=== PATIENT | female | born 1990 | race African-American/Black ===

== ENCOUNTER 2016-05-09 07:32 | Day surgery (SDC) | payer OTHER ==
[2016-05-07 11:54] LABS: HEMATOCRIT 37.7 % (36.0-47.0); HEMOGLOBIN 12.7 g/dL (12.0-15.5); HGB HCT DIFFERENCE 0.4; MEAN CORPUSCULAR HEMOGLOBIN 30.1 pg (27.0-33.4); MEAN CORPUSCULAR HGB CONC 33.6 g/dL (32.0-36.0); MEAN CORPUSCULAR VOLUME 90 fl (80-97); RED BLOOD COUNT 4.21 10^6/uL (3.72-5.28); RED CELL DISTRIBUTION WIDTH 14.7 % (11.5-14.0); WHITE BLOOD COUNT 6.5 10^3/uL (4.0-10.5)
[2016-05-07 12:02] LABS: APPEARANCE,URINE CLEAR; BILIRUBIN,URINE NEGATIVE (NEGATIVE); GLUCOSE, URINE NEGATIVE (NEGATIVE); KETONES,URINE NEGATIVE (NEGATIVE); LEUKOCYTE ESTERASE,URINE NEGATIVE (NEGATIVE); NITRITE,URINE NEGATIVE (NEGATIVE); PROTEIN,URINE NEGATIVE (NEGATIVE); URINE SPECIFIC GRAVITY 1.014; UROBILINOGEN,URINE NEGATIVE mg/dL (<2.0)
[~2016-05-09 07:32] MED LIST: CEFAZOLIN 2 GM/D5W RTU 2 GM/50 ML RTUPB IV PRN; LACTATED RINGERS 1000 ML IV PRN; LIDOCAINE 0.5% INJ-PF (5 MG/ML) 50 ML SDV SUBCUT PRN
[2016-05-09] MEDS ORDERED: FENTANYL CITRATE INJ/PF 100 MCG/2 ML AMPUL ONE (09:39)
[2016-05-09] MEDS ORDERED: DEXAMETHASONE SOD PHOSPHATE INJ 4 MG/1 ML VIAL ONE (09:39)
[2016-05-09] MEDS ORDERED: MIDAZOLAM 2 MG/2 ML INJ ONE (09:39)
[2016-05-09] MEDS ORDERED: PROPOFOL INJ 200 MG/20 ML VIAL IV ONE (09:39)
[2016-05-09] MEDS ORDERED: KETOROLAC TROMETHAMINE 60 MG/2 ML SDV ONE (09:39)
[2016-05-09] MEDS ORDERED: ONDANSETRON HCL INJ/PF 4 MG/2 ML SDV ONE (09:39)
[2016-05-09] MEDS ORDERED: DIPHENHYDRAMINE HCL 50 MG/ML VIAL IV PRN (10:07)
[2016-05-09] MEDS ORDERED: MORPHINE SULFATE 10 MG/ML INJ IV PRN (10:07)
[2016-05-09] MEDS ORDERED: PROMETHAZINE HCL INJ 25 MG/1 ML VIAL IV PRN ×2 (10:07)
[2016-05-09] MEDS ORDERED: MEPERIDINE HCL/PF INJ 25 MG/1 ML DISP.SYRIN IV PRN (10:07)
[2016-05-09] MEDS ORDERED: FENTANYL CITRATE INJ/PF 100 MCG/2 ML AMPUL IV PRN ×3 (10:07)
[2016-05-09] MEDS ORDERED: ACETAMINOPHEN 100 ML IV ONE (10:54)
[2016-05-09] MEDS ORDERED: OXYCODONE HCL IR 5 MG TABLET PO PRN ×2 (11:10)
--- NOTE | 2016-05-09 11:18 | OPERATIVE REPORT E ---
Operative Report NAME: AMILCAR ARAUJO : 1990 AGE: 25Y DATE OF SURGERY: 05/09/2016 ROOM: PREOPERATIVE DIAGNOSIS: Abnormal bleeding with suspected endometrial polyps. POSTOPERATIVE DIAGNOSES: 1. Abnormal bleeding. 2. Endometrial polyps. OPERATION PERFORMED: Hysteroscopy D and C with MyoSure. SURGEON: SHIRLEY OSBORNE M.D. ANESTHESIA: General. ESTIMATED BLOOD LOSS: 5 mL. SPECIMEN TO PATHOLOGY: Endometrial curettings and polyp. FINDINGS: After introduction of a hysteroscope there were 2 slightly irregular polyps noted at the fundus of the uterus. The remainder of the cavity showed slightly thickened endometrium but no obvious abnormalities. DESCRIPTION OF PROCEDURE: After discussing risks, benefits, and alternatives of the procedure and obtaining informed consent, the patient was taken to the operating room where general anesthesia was achieved. She was positioned in the dorsal lithotomy position and prepped and draped in the usual standard fashion. The bladder was drained via in-and-out catheterization. A speculum was placed in the vagina and the anterior aspect of the uterus was grasped. The cervix was serially dilated to allow for passage of the hysteroscope. Hysteroscopy was performed. The polyps were noted. The hysteroscope was removed. Curettage of the cavity was completed and relatively clean. The hysteroscope was replaced; however, the endometrial fragments of polyps were still present at the fundus. The MyoSure device was then called for and was placed, and under direct visualization the remainder of the polyps were removed. Hemostasis was assured. The hysteroscope was removed. The tenaculum was removed and hemostasis again assured. Instruments were removed from the vagina. Patient was taken out of dorsal lithotomy and awakened from anesthesia. She was taken to recovery in stable condition. All sponge, needle, lap and instrument counts were correct x2. DICTATING PHYSICIAN: SHIRLEY OSBORNE M.D. [id number] PHY#: [id number] ID: [id number] JOB#: [id number] ACCT: [id number] cc:SHIRLEY OSBORNE M.D. >
[2016-05-09 14:23] VITALS: BP 124/75
== END 2016-05-09 12:20 | disposition home or self-care (01) ==
LOC: OROUT 07:32
PROVIDERS: ATTEND Specialist
PROC: 0UDB8ZX Extraction of Endometrium, Via Natural or Artificial Opening Endoscopic, Diagnostic (ICD-10-PCS; 2016-05-09)
PROC: 0UB98ZX Excision of Uterus, Via Natural or Artificial Opening Endoscopic, Diagnostic (ICD-10-PCS; principal; 2016-05-09 09:45)
DX: N92.0 Excessive and frequent menstruation with regular cycle (principal); E28.2 Polycystic ovarian syndrome; E66.9 Obesity, unspecified; N84.0 Polyp of corpus uteri; Z68.41 Body mass index [BMI] 40.0-44.9, adult; Z79.84 Long term (current) use of oral hypoglycemic drugs
CPT/HCPCS: 36415; 85027; 81025; 81001; 88305 ×2; 58558; J2250; J1100; J1885; J3010; J2405; J2704; J0690; J0131; 952

== ENCOUNTER 2017-04-24 17:48 | Emergency (ER) | payer OTHER ==
--- NOTE | 2017-04-24 18:21 | ER Document Report ---
ED Medical Screen (RME) - General Chief Complaint: Shortness Of Breath Stated Complaint: SHORTNESS OF BREATH,CHEST PAIN Time Seen by Provider: 04/24/17 18:19 Mode of Arrival: Ambulatory Information source: Patient Notes: This is a 26-year-old female who is 5 days presenting to the emergency room with shortness of breath for 2 days. Patient had delivered at [facility] at 37 weeks. Her was notable for preeclampsia. She never required any antihypertensives by her history. She had an uncomplicated vaginal delivery and states she felt good when leaving. She does report that since yesterday, she is had some shortness of breath. She does report some lower extremity swelling that has been worse on the right side than the left. She denies any calf tenderness. Patient is accompanied by her friend who states that the patient did sound winded when talking on the phone. TRAVEL OUTSIDE OF THE [place] IN LAST 30 DAYS: No - Related Data Allergies/Adverse Reactions: No Known Allergies Allergy (Unverified 02/17/12 21:28) Past Medical History - Social History Frequency of alcohol use: Occasional Drug Abuse: None - Past Medical History Cardiac Medical History: Denies: Hx Coronary Artery Disease, Hx Heart Attack, Hx Hypertension Pulmonary Medical History: Denies: Hx Asthma, Hx Bronchitis, Hx COPD, Hx Pneumonia Neurological Medical History: Reports: Hx Migraine. Denies: Hx Cerebrovascular Accident, Hx Seizures Renal/ Medical History: Reports: Hx Ovarian Cysts - pcos. Denies: Hx Peritoneal Dialysis Musculoskeltal Medical History: Denies Hx Arthritis - Immunizations Immunizations up to date: Yes Hx Diphtheria, Pertussis, Tetanus Vaccination: Yes Physical Exam - Vital signs Vitals: Temp Pulse Resp BP Pulse Ox 98.6 F 71 20 157/84 H 98 04/24/17 17:53 04/24/17 17:53 04/24/17 17:53 04/24/17 17:53 04/24/17 17:53 Course - Vital Signs Vital signs: Temp Pulse Resp BP Pulse Ox 98.6 F 71 20 157/84 H 98 04/24/17 17:53 04/24/17 17:53 04/24/17 17:53 04/24/17 17:53 04/24/17 17:53
[2017-04-24 18:48] LABS: ABSOLUTE EOSINOPHILS # (AUTO) 0.1 10^3/uL (0.0-0.6); ABSOLUTE MONOCYTES (AUTO) 0.8 10^3/uL (0.1-1.4); ABSOLUTE NEUT (AUTO) 7.1 10^3/uL (1.7-8.2); BASOPHILS % (AUTO) 0.3 % (0-2); EOSINOPHILS % (AUTO) 0.9 % (0-6); HEMATOCRIT 29.5 % (36.0-47.0); HEMOGLOBIN 9.9 g/dL (12.0-15.5); LYMPHOCYTES % (AUTO) 20.2 % (13-45); MEAN CORPUSCULAR HEMOGLOBIN 30.1 pg (27.0-33.4); MEAN CORPUSCULAR HGB CONC 33.4 g/dL (32.0-36.0); MEAN CORPUSCULAR VOLUME 90 fl (80-97); MONOCYTES % (AUTO) 8.2 % (3-13); PLATELET COUNT 322 10^3/uL (150-450); RED BLOOD COUNT 3.28 10^6/uL (3.72-5.28); RED CELL DISTRIBUTION WIDTH 15.1 % (11.5-14.0); SEGMENTED NEUTROPHILS % (AUTO) 70.4 % (42-78); TOTAL CELLS COUNTED % (AUTO) 100 %; WHITE BLOOD COUNT 10.1 10^3/uL (4.0-10.5)
[2017-04-24 19:02] LABS: ALANINE AMINOTRANSFERASE 48 U/L (9-52); ALBUMIN 3.4 g/dL (3.5-5.0); ALKALINE PHOSPHATASE 104 U/L (38-126); ANION GAP 9 (5-19); ASPARTATE AMINO TRANSFERASE 46 U/L (14-36); BILIRUBIN,DIRECT 0.1 mg/dL (0.0-0.4); BILIRUBIN,TOTAL 0.4 mg/dL (0.2-1.3); BLOOD UREA NITROGEN 4 mg/dL (7-20); CALCIUM 9.3 mg/dL (8.4-10.2); CARBON DIOXIDE 25 mmol/L (22-30); CHLORIDE 107 mmol/L (98-107); GLUCOSE 69 mg/dL (75-110); POTASSIUM 3.3 mmol/L (3.6-5.0); SODIUM 141.1 mmol/L (137-145)
[2017-04-24 19:29] LABS: APPEARANCE,URINE CLEAR; BILIRUBIN,URINE NEGATIVE (NEGATIVE); COLOR,URINE YELLOW; GLUCOSE, URINE NEGATIVE (NEGATIVE); KETONES,URINE 20 mg/dL (NEGATIVE); LEUKOCYTE ESTERASE,URINE SMALL (NEGATIVE); NITRITE,URINE NEGATIVE (NEGATIVE); PROTEIN,URINE NEGATIVE (NEGATIVE); URINE SPECIFIC GRAVITY 1.005; UROBILINOGEN,URINE NEGATIVE mg/dL (<2.0)
--- NOTE | 2017-04-24 19:43 | RADIOLOGY REPORT (SQ) ---
EXAM DESCRIPTION: CHEST SINGLE VIEW COMPLETED DATE/TIME: 04/24/2017 7:34 pm REASON FOR STUDY: sob COMPARISON: 02/17/2012 EXAM PARAMETERS: NUMBER OF VIEWS: One view. TECHNIQUE: Single frontal portable radiographic view of the chest acquired. RADIATION DOSE: NA LIMITATIONS: None. FINDINGS: LUNGS AND PLEURA: No acute opacities, masses or pneumothorax. No pleural effusion. MEDIASTINUM AND HILAR STRUCTURES: No masses. Contour normal. HEART AND VASCULAR STRUCTURES: Heart normal in size. Normal vasculature. BONES: No acute findings. HARDWARE: None in the chest. OTHER: No other significant finding. IMPRESSION: NO ACUTE RADIOGRAPHIC FINDING IN THE CHEST. TECHNICAL DOCUMENTATION: JOB ID: [id number] [place]-72 2010 [employer]- All Rights Reserved
[2017-04-24] MEDS ORDERED: LABETALOL HCL 200 MG TABLET PO ONE (20:12)
--- NOTE | 2017-04-24 20:20 | ER Document Report ---
ED General - General Chief Complaint: Shortness Of Breath Stated Complaint: SHORTNESS OF BREATH,CHEST PAIN Time Seen by Provider: 04/24/17 18:19 Mode of Arrival: Ambulatory Notes: Patient is a 26-year-old female 5 days from a vaginal delivery induced at 37 weeks for preeclampsia who presents with headache, chest discomfort, and body aches. Patient reports that she did not receive magnesium her antihypertensive during her delivery and had normalization of her blood pressure . She was discharged home without the need for antihypertensives. She reports over the past 2-3 days she has had progressive worsening of a headache. She also notes intermittent shortness of breath and chest pain which she does describe it as a intermittent heaviness, achiness diffusely over her chest wall. Nothing improves or worsens that symptom. She denies any history of DVT or pulmonary embolus. She denies any pleuritic pain, hemoptysis, or exertional worsening of her symptoms. She does note bilateral lower extremity edema and contrary to triage assessment she denies any unilateral worsening of one versus the other. She has not yet followed up with her INTERPRETATIVE DANCER regarding today's concerns. TRAVEL OUTSIDE OF THE [place] IN LAST 30 DAYS: No - Related Data Allergies/Adverse Reactions: No Known Allergies Allergy (Unverified 02/17/12 21:28) Past Medical History - General Information source: Patient - Social History Smoking Status: Never Smoker Frequency of alcohol use: Occasional Drug Abuse: None Lives with: Spouse/Significant other Family History: Reviewed & Not Pertinent Patient has suicidal ideation: No Patient has homicidal ideation: No - Past Medical History Cardiac Medical History: Denies: Hx Coronary Artery Disease, Hx Heart Attack, Hx Hypertension Pulmonary Medical History: Denies: Hx Asthma, Hx Bronchitis, Hx COPD, Hx Pneumonia Neurological Medical History: Reports: Hx Migraine. Denies: Hx Cerebrovascular Accident, Hx Seizures Renal/ Medical History: Reports: Hx Ovarian Cysts - pcos. Denies: Hx Peritoneal Dialysis Musculoskeltal Medical History: Denies Hx Arthritis - Immunizations Immunizations up to date: Yes Hx Diphtheria, Pertussis, Tetanus Vaccination: Yes Review of Systems - Review of Systems Notes: Constitutional: Negative for fever. HENT: Negative for sore throat. Eyes: Negative for visual changes. Cardiovascular: Positive for chest pain. Respiratory: Positive for shortness of breath. Gastrointestinal: Negative for abdominal pain, vomiting or diarrhea. Genitourinary: Negative for dysuria. Musculoskeletal: Negative for back pain. Skin: Negative for rash. Neurological: Positive for headache 10 point ROS negative except as marked above and in HPI. Physical Exam - Vital signs Vitals: Temp Pulse Resp BP Pulse Ox 98.6 F 71 20 157/84 H 98 04/24/17 17:53 04/24/17 17:53 04/24/17 17:53 04/24/17 17:53 04/24/17 17:53 Interpretation: Hypertensive Notes: PHYSICAL EXAMINATION: GENERAL: Well-appearing, well-nourished and in no acute distress. HEAD: Atraumatic, normocephalic. EYES: Pupils equal round and reactive to light, extraocular movements intact, sclera anicteric, conjunctiva are normal. ENT: nares patent, oropharynx clear without exudates. Moist mucous membranes. NECK: Normal range of motion, supple without lymphadenopathy LUNGS: Breath sounds clear to auscultation bilaterally and equal. No wheezes rales or rhonchi. HEART: Regular rate and rhythm without murmurs ABDOMEN: Soft, nontender, normoactive bowel sounds. No guarding, no rebound. No masses appreciated. EXTREMITIES: Normal range of motion, 3+ pitting edema that is equal and symmetric in the bilateral lower extremities, no cyanosis. NEUROLOGICAL: No focal neurological deficits. Moves all extremities spontaneously and on command. PSYCH: Normal mood, normal affect. SKIN: Warm, Dry, normal turgor, no rashes or lesions noted. Course - Re-evaluation Re-evalutation: 04/24/17 20:17 Patient presents with headache, chest discomfort, intermittent shortness of breath, and hypertension but is otherwise very well in appearance. I do not clinically suspect an acute pulmonary embolus as patient is not tachypneic, tachycardic or hypoxemic and her lower cavity edema is equal and symmetric. She is PERC criteria negative. I have a very low pretest probability for this despite her being in high risk category as she is only 5 days from vaginal delivery. However, she denies typical symptoms for this diagnosis including no report of pleuritic pain, no shortness of breath at time of my assessment, no hemoptysis, and again her vital signs are very contradictory to what one would expect in the setting of a pulmonary embolus. She is in agreement with avoiding the CTA at this point given the risks of associated radiation and the overall low pretest probability for this diagnosis. Chest x- ray is clear without any evidence of a spontaneous pneumothorax, pleural effusion, or acute infiltrate. EKG unremarkable without any ischemic changes and her clinical history is likewise not consistent with ACS. My primary concern is the patient appears to be having ongoing preeclampsia. I did discuss with the INTERPRETATIVE DANCER on-call Dr. Jack Ghotra. I requested hospitalization given that patient is having a headache with associated hypertension up to [address] Ghotra however has informed me that he does not routinely hospitalize these patients, does not believe the patient requires IV antihypertensives or magnesium, and has requested the patient be discharged home with outpatient follow-up. He has asked that the patient, who is breast- feeding, be started on labetalol 200 mg orally twice daily. Patient has been given this medication here in the emergency department. I have asked her to follow-up with her INTERPRETATIVE DANCER first thing in the morning and return to the emergency department immediately for any new or worsening symptoms. She is in agreement with this plan and is verbalized indications to return to the emergency department. - Vital Signs Vital signs: Temp Pulse Resp BP Pulse Ox 98.6 F 71 12 153/79 H 99 04/24/17 21:34 04/24/17 17:53 04/24/17 20:11 04/24/17 20:47 04/24/17 20:11 - Laboratory Result Diagrams: 04/24/17 18:27 04/24/17 18:27 Laboratory results interpreted by me: 04/24/17 04/24/17 04/24/17 18:27 18:27 18:54 RBC 3.28 L Hgb 9.9 L Hct 29.5 L RDW 15.1 H Potassium 3.3 L BUN 4 L Glucose 69 L AST 46 H Total Protein 6.0 L Albumin 3.4 L Urine Ketones 20 H Urine Blood LARGE H Ur Leukocyte Esterase SMALL H - Diagnostic Test Radiology reviewed: Image reviewed, Reports reviewed Radiology results interpreted by me: 04/24/17 20:20 Chest x-ray: No acute infiltrate or pneumothorax - EKG Interpretation by Me Additional EKG results interpreted by me: 04/24/17 20:20 Normal sinus rhythm. Rate 70. No ST elevations or depressions. QTC is 389. Discharge - Discharge Clinical Impression: Preeclampsia in period, Chest discomfort Condition: Good Disposition: HOME, SELF-CARE Additional Instructions: I spoke with the INTERPRETATIVE DANCER on-call today, Dr. Jack Ghotra and he has recommended that you be discharged home rather than be admitted to the hospital. He has recommended that she be started on labetalol 200 mg twice daily. Please follow- up with your INTERPRETATIVE DANCER tomorrow for reassessment as well as a recheck of your vitals. Return to the emergency department immediately if you have worsening of your symptoms, pass out, have persistent vomiting, worsening of your headache , seizures, or any other symptoms that are worrisome to you. Prescriptions: Labetalol HCl 200 mg PO BID #60 tablet
[2017-04-24 21:34] VITALS: BP 166/88
--- NOTE | 2017-04-25 11:09 | EKG REPORT ---
SEVERITY:- OTHERWISE NORMAL ECG - SINUS RHYTHM BORDERLINE LEFT AXIS DEVIATION : Confirmed by: Razia Hung 25-Apr-2017 11:08:26
== END 2017-04-24 21:34 | disposition home or self-care (01) ==
LOC: ER 17:48
DX: O14.95 Unspecified pre-eclampsia, complicating the puerperium (principal); O90.89 Other complications of the puerperium, not elsewhere classified; R07.89 Other chest pain; R51 Headache; R06.02 Shortness of breath
CPT/HCPCS: 36415; 71045; 80053; 81001; 85025; 93005; 93010; 99285

== ENCOUNTER 2018-03-22 06:32 | Emergency (ER) | payer OTHER ==
--- NOTE | 2018-03-22 07:17 | RADIOLOGY REPORT (SQ) ---
EXAM DESCRIPTION: CT HEAD WITHOUT IV CONTRAST COMPLETED DATE/TME: 03/22/2018 00:00 CLINICAL HISTORY: right weak, slurred speech COMPARISON: None available TECHNIQUE: Axial CT of the head obtained from the skull apex to the skull base without contrast. FINDINGS: No acute intracranial hemorrhage identified. No mass, mass effect, shift of the midline, abnormal extra-axial fluid collection or CT evidence of acute ischemic change identified. The ventricular system is unremarkable. No acute abnormalities of the supratentorial white matter, basal ganglia, cerebellum, or brainstem. Mucosal thickening of the paranasal sinuses. Mastoid air cells are well aerated. No skull fracture identified. Visualized orbits and globes are unremarkable. DLP: 928.66 mGy-cm IMPRESSION: 1. No acute intracranial abnormality identified. This exam was performed according to our departmental dose-optimization program, which includes automated exposure control, adjustment of the mA and/or kV according to patient size and/or use of iterative reconstruction technique.
--- NOTE | 2018-03-22 07:44 | ER Document Report ---
ED General - General TRAVEL OUTSIDE OF THE [place] IN LAST 30 DAYS: No <GERDA ALMANZA - Last Filed: 03/22/18 14:24> <TOI SHIN - Last Filed: 03/23/18 08:17> - General Chief Complaint: S/S of Possible Stroke Stated Complaint: RIGHT SIDE WEAKNESS Time Seen by Provider: 03/22/18 07:06 - HPI Notes: Patient is a 27-year-old female with no significant past medical history aside from preeclampsia who presents to the emergency department complaining of dysarthria, right face/arm tingling that began at 6 AM. Patient states that she was fine when she went to bed last night. She does not recall insect bite, foods, or exposure to chemicals. Patient states that she is able to swallow, but does feel difficulty on the right side at times. states that she is otherwise acting and behaving normally. Patient states that she is urinating normally. She has not had any vaginal discharge, odor, or bleeding. Patient has been able to ambulate without any difficulty. The tingling has improved since onset. Denies any headache, fever, head injury, neck pain, changes in vision/mentation/hearing, URI, sore throat, chest pain, palpitations, syncope, cough, shortness of breath, wheeze, dyspnea, abdominal pain, nausea/vomiting/diarrhea, urinary retention, dysuria, hematuria, loss of control of bowel or bladder, saddle anesthesia, muscle paralysis/weakness, or rash. (GERDA ALMANZA) - Related Data Allergies/Adverse Reactions: No Known Allergies Allergy (Verified 03/22/18 09:28) Past Medical History - Social History Smoking Status: Never Smoker Chew tobacco use (# tins/day): No Frequency of alcohol use: Occasional Drug Abuse: None Family History: Reviewed & Not Pertinent Patient has suicidal ideation: No Patient has homicidal ideation: No - Past Medical History Cardiac Medical History: Denies: Hx Coronary Artery Disease, Hx Heart Attack, Hx Hypertension Pulmonary Medical History: Denies: Hx Asthma, Hx Bronchitis, Hx COPD, Hx Pneumonia Neurological Medical History: Reports: Hx Migraine. Denies: Hx Cerebrovascular Accident, Hx Seizures Renal/ Medical History: Reports: Hx Ovarian Cysts - pcos. Denies: Hx Peritoneal Dialysis Musculoskeletal Medical History: Denies Hx Arthritis - Immunizations Immunizations up to date: Yes Hx Diphtheria, Pertussis, Tetanus Vaccination: Yes <GERDA ALMANZA - Last Filed: 03/22/18 14:24> Review of Systems - Review of Systems -: Yes All other systems reviewed and negative <GERDA ALMANZA - Last Filed: 03/22/18 14:24> Physical Exam <GERDA ALMANZA - Last Filed: 03/22/18 14:24> - Vital signs Vitals: Resp Pulse Ox 16 99 03/22/18 06:52 03/22/18 06:52 - Notes Notes: PHYSICAL EXAMINATION: GENERAL: Well-appearing, well-nourished and in no acute distress. A&Ox4. Answe rs questions appropriately. HEAD: Atraumatic, normocephalic. Non-tender. EYES: Pupils equal round and reactive to light, extraocular movements intact, sclera anicteric, conjunctiva are normal. No nystagmus. vis velez intact. ENT: EAC clear b/l. TM's intact b/l without erythema, fluid, or perforation. Nares patent and with clear discharge. oropharynx clear without exudates. No tonsilar hypertrophy or erythema. Moist mucous membranes. No sinus tenderness. NECK: Normal range of motion, supple without lymphadenopathy. No rigidity/meningismus. No midline tenderness. LUNGS: Breath sounds clear to auscultation bilaterally and equal. No wheezes rales or rhonchi. HEART: Regular rate and rhythm without murmurs, rubs, gallops. ABDOMEN: Soft, nontender, nondistended abdomen. No guarding, no rebound. Normal bowel sounds present. No CVA tenderness bilaterally. Musculoskeletal: Ext's b/l: FROM to passive/active. Strength 5+/5. No deficits noted. No bony tenderness of extremities. Extremities: No cyanosis, clubbing, or edema b/l. Peripheral pulses 2+. Capillary refill less than 2 seconds. NEUROLOGICAL: NIH 2 (1 for facial palsy rt side-mild, and 1 for speech). The right cheek does not elevate symmetrically. Her speech is understood, but somewhat muffled. GCS 15. Cranial nerves otherwise grossly intact. Gait normal. Normal sensory, motor exams--no sharp/dull deficits. Reflexes 1+ b/l and equal. ROSA's negative. Pronator drift negative. Heel/khan, finger/nose wnl. Rhomberg neg. PSYCH: Normal mood, normal affect. SKIN: Warm, Dry, normal turgor, no rashes or lesions noted. (GERDA ALMANZA) Course - Laboratory Result Diagrams: 03/22/18 08:20 03/22/18 08:00 <GERDA ALMANZA - Last Filed: 03/22/18 14:24> - Laboratory Result Diagrams: 03/22/18 08:20 03/22/18 08:00 <TOI SHIN - Last Filed: 03/23/18 08:17> - Re-evaluation Re-evalutation: 03/22/18 09:30 Pt was found to have a neg CT and MRI was then ordered after review with Dr. Shin. NIH 2. MRI + for left MCA infarct. Last known normal was approx 930pm last night. Pt states that she woke up feeling "funny." Pt has not had any deterioration in signs/symptoms. Call placed to [facility] per pt request. I spoke with Dr. Durbin who would like a CTA of the head/neck to further evaluate. Dr. Shin recommends sending this patient to a place that has neurology for consult regardless if they can perform a procedure or not. Pt has expressed similar feelings as she is 27yo. 03/22/18 10:30 Call placed to [facility]. CTA neck/head unremarkable, most likely small vessel. Pt would still like to be transferred to a place that has neurology. Waiting for call back from [facility]. 03/22/18 11:24 2nd call placed as the page was not returned as of yet. 03/22/18 11:[address] again with Dr. Durbin who agrees with small vessel and would like the patient there in a step-down unit most likely, but we have to get a hospitalist for accepting/attending. page sent by [employer]. 03/22/18 12:00 Pt was accepted to [facility] by Dr. Perez, hospitalist. Pt has no new concerns or complaints. Able to ambulate w/o any difficulty. No deterioration of signs/symptoms. Vitals acceptable. 03/22/18 13:00 Transport arrived. No new concerns or complaints. Vitals acceptable. Pt stable for transfer. (GERDA ALMANZA) - Vital Signs Vital signs: Temp Pulse Resp BP Pulse Ox 98.6 F 94 18 119/72 97 03/22/18 13:16 03/22/18 13:00 03/22/18 13:16 03/22/18 13:16 03/22/18 13:16 - Laboratory Laboratory results interpreted by me: 03/22/18 03/22/18 03/22/18 08:00 08:00 08:20 Seg Neuts % (Manual) 25 L Lymphocytes % (Manual) 66 H Abs Neuts (Manual) 1.5 L Chloride 110 H Urine Protein 30 H Urine Ketones TRACE H Urine Blood LARGE H Urine Urobilinogen 2.0 H Critical Care Note - Critical Care Note Total time excluding time spent on procedures (mins): 38 <GERDA ALMANZA - Last Filed: 03/22/18 14:24> - Critical Care Note Comments: consulting with [facility] Neuro labs, imaging, and frequent re-evaluations (GERDA ALMANZA) Discharge <GERDA ALMANZA - Last Filed: 03/22/18 14:24> <TOI SHIN - Last Filed: 03/23/18 08:17> - Discharge Clinical Impression: Left-sided cerebrovascular accident (CVA) Condition: Stable Disposition: [facility] ED NIH Stroke Scale - NIH Stroke Scale When completed:: Before Alteplase *: 1. NIH scale should be completed with appropriate accompanying assessment tools. *: 2. The NIH should reflect what the patient is capable of doing and should not be coached by the clinician. 1a. Level of Consciousness: 0=Alert;keenly responsive -: 1=Drowsy -: 2=Obtunded -: 3=Coma/unresponsive or reflex to noxious stimuli. 1a. Responses: 0 1b. Orientation Questions: a. What month is it? -: b. How old are you? -: 0=Answers both questions correctly. -: 1=Answers one question correctly or patient is intubated or has orotracheal trauma. -: 2=Answers neither question correctly. 1b. Responses: 0 1c. Response to commands: a. Open and close eyes? -: b. Dinkey Engine Firer/Fireman and release hand? -: Credit is given despite weakness. Demonstration of task is permitted. Substitute command if hands cannot be used. -: 0=Performs both tasks correctly -: 1=Performs one task correctly -: 2=Performs neither task correctly 1c. Responses: 0 2. Gaze: Establish eye contact and instruct patient to "Follow my finger" -: 0=Normal -: 1=Partial gaze palsy. Gaze is abnormal in one or both eyes, but where forced deviation or total gaze paresis is not present. -: 2=Forced deviation or total gaze paresis. 2. Responses: 0 3. Visual Velez: Sees fingers in all four quadrants. -: 0=No visual loss. -: 1=Partial hemianopsia. -: 2=Complete hemianopsia. -: 3=Bilateral hemianopsia (including Cortical blindness) 3. Responses: 0 4. Facial Movement: Instruct patient to: -: a. Show me your teeth -: b. Raise your eyebrows -: c. Close your eyes -: d. Smile -: 0=Normal symmetrical movement -: 1=Minor paralysis (flattened nasolabial fold, asymmetry on smiling). -: 2=Partial paralysis (total or near total paralysis of lower face). -: 3=Complete paralysis of upper and lower face 4. Responses: 1 5. Motor functions (left arm): Alternate sides and extend each arm with palms down (90 degrees if sitting or 45 degrees for supine). -: 0=No drift;limb holds for full 10 seconds. -: 1=Drift; limb holds but drifts down before full 10 seconds, but does not hit bed. -: 2=Some effort against gravity; limb cannot get to or maintain position. -: 3=No effort against gravity; limb falls. -: 4=No movement. -: UN=Amputation, joint fusion, explain in comments. 5. Responses (left arm): 0 5. Motor Functions (right arm): Alternate sides and extend each arm with palms down (90 degrees if sitting or 45 degrees for supine). -: 0=No drift;limb holds for full 10 seconds. -: 1=Drift; limb holds but drifts down before full 10 seconds, but does not hit bed. -: 2=Some effort against gravity; limb cannot get to or maintain position. -: 3=No effort against gravity; limb falls. -: 4=No movement. -: UN=Amputation, joint fusion, explain in comments. 5. Responses (right arm): 0 6. Motor Functions (left leg): With patient lying supine, alternate sides and extend each leg (30 degrees always while supine). -: 0=No drift, leg holds position for full 5 seconds -: 1=Drift; leg falls before full 5 seconds but does not hit bed. -: 2=Some effort against gravity, leg falls to bed but some effort against gravity. -: 3=No effort against gravity, leg falls to bed immediately. -: 4=No movement. -: UN=Amputation, joint fusion; explain in comments. 6. Responses (left leg): 0 6. Motor Functions (right leg): With patient lying supine, alternate sides and extend each leg (30 degrees always while supine). -: 0=No drift, leg holds position for full 5 seconds -: 1=Drift; leg falls before full 5 seconds but does not hit bed. -: 2=Some effort against gravity, leg falls to bed but some effort against gravity. -: 3=No effort against gravity, leg falls to bed immediately. -: 4=No movement. -: UN=Amputation, joint fusion; explain in comments. 6. Responses (right leg): 0 7. Limb Ataxia: With eyes open instruct patient to: -: a. "Touch your finger to your nose". -: b. "Touch your heel to your khan" -: 0=Absent -: 1=Present in one limb. -: 2=Present in two limbs. -: UN=Amputation or joint fusion; explain in comments. 7. Responses: 0 8. Sensory: Test sensation using pinprick or noxious stimuli. Test as many body parts as possible. -: 0=Normal;no sensory loss -: 1=Mile to moderate sensory loss (patient feels pin prick but is less sharp on affected side). -: 2=Severe or total sensory loss. 8. Responses: 0 9. Best Language: Instruct patient to: -: a. "Describe what you see in this picture." -: b. "Name the items in this picture." -: c. "Read these sentences." -: 0=No aphasia, normal -: 1=Mild to moderate aphasia. -: 2=Severe aphasia -: 3=Mute, global aphasia, no usable speech or auditory comprehension. 10. Articulation, Dysarthia: Instruct patient to: -: "Read these words" or "Repeat these words" -: 0=Normal -: 1=Mild to moderate; patient may slur some words but can be understood without difficulty. -: 2=Severe; patients speech so slurred as to be unintelligible in the absence of dysphasia. -: UN=Intubated or other physical barrier, explain in comments. 10. Responses: 1 11. Extinction or inattention: 0=No abnormality -: 1= Visual, tactile, auditory, spatial, or personal inattention or extinction to bilateral simulation in one or the sensory modalities. -: 2=Profound irene-inattention or irene-inattention to more than one modality; does not recognize own hand. 11. Responses: 0 Total Score: 2 <GERDA ALMANZA - Last Filed: 03/22/18 14:24> Cosign for MLP Consult - Cosign -: I was personally available for consultation in the Emergency Department and serving as supervising physician for the MLP. Cosign for MLP: . <TOI SHIN - Last Filed: 03/23/18 08:17>
[2018-03-22] MEDS ORDERED: NORMAL SALINE 1000 ML 1,000 ML IV ONE (07:45)
[2018-03-22 08:28] LABS: APPEARANCE,URINE CLOUDY; BILIRUBIN,URINE NEGATIVE (NEGATIVE); COLOR,URINE DARK YELLOW; GLUCOSE, URINE NEGATIVE (NEGATIVE); KETONES,URINE TRACE mg/dL (NEGATIVE); LEUKOCYTE ESTERASE,URINE NEGATIVE (NEGATIVE); NITRITE,URINE NEGATIVE (NEGATIVE); PROTEIN,URINE 30 mg/dL (NEGATIVE); URINE SPECIFIC GRAVITY 1.028
[2018-03-22 08:40] LABS: HEMATOCRIT 36.5 % (36.0-47.0); HEMOGLOBIN 12.5 g/dL (12.0-15.5); MEAN CORPUSCULAR HEMOGLOBIN 30.5 pg (27.0-33.4); MEAN CORPUSCULAR HGB CONC 34.2 g/dL (32.0-36.0); MEAN CORPUSCULAR VOLUME 89 fl (80-97); PLATELET COUNT 316 10^3/uL (150-450); RED BLOOD COUNT 4.09 10^6/uL (3.72-5.28); RED CELL DISTRIBUTION WIDTH 13.5 % (11.5-14.0); WHITE BLOOD COUNT 5.8 10^3/uL (4.0-10.5)
[2018-03-22 08:46] LABS: URINE AMPHETAMINES SCREEN NEGATIVE; URINE BARBITURATES SCREEN NEGATIVE; URINE BENZODIAZEPINES SCREEN NEGATIVE; URINE COCAINE SCREEN NEGATIVE; URINE MARIJUANA (THC) SCREEN NEGATIVE; URINE METHADONE SCREEN NEGATIVE; URINE PHENCYCLIDINE SCREEN NEGATIVE
[2018-03-22 08:47] LABS: ALANINE AMINOTRANSFERASE 40 U/L (9-52); ALBUMIN 3.5 g/dL (3.5-5.0); ALKALINE PHOSPHATASE 68 U/L (38-126); ASPARTATE AMINO TRANSFERASE 24 U/L (14-36); BILIRUBIN,DIRECT 0.1 mg/dL (0.0-0.4); BILIRUBIN,TOTAL 0.5 mg/dL (0.2-1.3); BLOOD UREA NITROGEN 9 mg/dL (7-20); CALCIUM 8.5 mg/dL (8.4-10.2); CARBON DIOXIDE 26 mmol/L (22-30); CHLORIDE 110 mmol/L (98-107); GLUCOSE 87 mg/dL (75-110); POTASSIUM 3.6 mmol/L (3.6-5.0); TOTAL PROTEIN 6.3 g/dL (6.3-8.2)
[2018-03-22 08:52] LABS: ANION GAP 6 (5-19)
[2018-03-22 08:58] LABS: ABSOLUTE MONOCYTES # (MANUAL) 0.2 10^3/uL (0.1-1.4); ABSOLUTE NEUTROPHILS# (MANUAL) 1.5 10^3/uL (1.7-8.2); BASOPHILS % (MANUAL) 0 % (0-2); EOSINOPHILS % (MANUAL) 2 % (0-6); LYMPHOCYTES % (MANUAL) 66 % (13-45); MONOCYTES % (MANUAL) 4 % (3-13); SEGMENTED NEUTROPHILS % (MAN) 25 % (42-78); TOTAL CELLS COUNTED 100
--- NOTE | 2018-03-22 08:58 | EKG REPORT ---
SEVERITY:- OTHERWISE NORMAL ECG - SINUS TACHYCARDIA : Confirmed by: Jesus Gonzalez MD 22-Mar-2018 08:57:04
[2018-03-22 08:59] LABS: PLATELET COMMENT ADEQUATE
--- NOTE | 2018-03-22 09:12 | RADIOLOGY REPORT (SQ) ---
EXAM DESCRIPTION: MRI HEAD WITHOUT COMPLETED DATE/TIME: 03/22/2018 8:57 am REASON FOR STUDY: rt facial paralysis,mild,dysarthria (NIH 2),neg CT COMPARISON: 03/22/2018 CT scan TECHNIQUE: Multiplanar imaging includes non-contrasted T1, T2, FLAIR, and diffusion with ADC map seq uences. Images stored on PACS. LIMITATIONS: None. FINDINGS: ANATOMY: No anomalies. Normal vascular flow voids. Pituitary fossa normal. CSF SPACES: Normal in size and contour. No hemorrhage. CEREBRUM: Sulci and gyri normal in size and contour. Focal signal alteration in the peripheral white matter extending to early matter of the left parietal lobe. No hemorrhage. No mass effect. . No e vidence of hemorrhage, mass, or extraaxial fluid collection. POSTERIOR FOSSA: No signal alteration. No hemorrhage. No edema, masses or mass effect. Internal ruma tory canals, cerebello-pontine angles, mastoids normal. DIFFUSION IMAGING: Restricted diffusion in a segment of early and white matter mid parietal lobe. ORBITS: No masses. Globes normal. PARANASAL SINUSES: Complete opacification of the left maxillary sinus with possible mucocele. OTHER: No other significant finding. IMPRESSION: Acute infarction involving the peripheral white and early matter of the left parietal lob e. No hemorrhage. No mass effect. EVIDENCE OF ACUTE STROKE: YES. LEFT MCA Possible mucocele left maxillary sinus. TECHNICAL DOCUMENTATION: JOB ID: [id number] [employer]- All Rights Reserved Reading location - IP/workstation name: [email or web address]
[2018-03-22 09:50] LABS: INTERNATIONAL RATION (INR) 0.98; PROTHROMBIN TIME 13.5 SEC (11.4-15.4)
[2018-03-22 09:51] LABS: PARTIAL THROMBOPLASTIN TIME 29.9 SEC (23.5-35.8)
--- NOTE | 2018-03-22 10:16 | RADIOLOGY REPORT (SQ) ---
EXAM DESCRIPTION: CTA NECK COMPLETED DATE/TIME: 03/22/2018 10:04 am REASON FOR STUDY: Left MCA occlusion COMPARISON: None. TECHNIQUE: Axial dynamic scanning technique with dynamic contrast enhancement through the extra-crankshaft grinder nial carotid and vertebral arteries. Multiplanar reconstruction. 3-D MIPS and Volume-rendered imag es acquired at the workstation and saved to PACS. Images are reviewed in soft tissue, bone, lung w indows. All CT scanners at this facility use dose modulation, iterative reconstruction, and/or weight based d osing when appropriate to reduce radiation dose to as low as reasonably achievable (ALARA). [facility]: Dose Right [facility]: CareDose [facility]: Dose Right [facility]: Teradose 4D [facility]: [employer] CONTRAST TYPE AND DOSE: contrast/concentration: Isovue 350.00 mg/ml; Total Contrast Delivered: 80.0 ml; Total Saline Delivered: 75.0 ml RENAL FUNCTION: None required. The patient is less than 50 years old. LIMITATIONS: None. FINDINGS: AORTIC ARCH: Normal three-vessel origin. Bilateral subclavian arteries are patent. No d issection. RIGHT CAROTIDS: Patent common, internal and external carotid arteries without suggestion of significa nt stenosis or irregular plaque. No dissection. RIGHT VERTEBRAL: Patent. No dissection. LEFT CAROTIDS: Patent common, internal and external carotid arteries without suggestion of significan t stenosis or irregular plaque. No dissection. LEFT VERTEBRAL: Patent. No dissection. OTHER: No other significant finding. OTHER: 3-D reconstructions confirm findings. IMPRESSION: NORMAL CTA OF THE EXTRA-CRANIAL CAROTID AND VERTEBRAL ARTERIES. COMMENT: Quality ID #[id number]: Measurements of distal internal carotid diameter were used as the denomina tor for stenosis measurement. TECHNICAL DOCUMENTATION: JOB ID: [id number] Quality ID # [id number]: Final reports with documentation of one or more dose reduction techniques (e.g., Au tomated exposure control, adjustment of the mA and/or kV according to patient size, use of iterative reconstruction technique) 2010 [employer]- All Rights Reserved Reading location - IP/workstation name: [email or web address]
--- NOTE | 2018-03-22 10:24 | RADIOLOGY REPORT (SQ) ---
EXAM DESCRIPTION: CTA HEAD COMPLETED DATE/TIME: 03/22/2018 10:04 am REASON FOR STUDY: Left MCA occlusion COMPARISON: None. TECHNIQUE: Post IV contrast scanning, thin section axial imaging through the brain to evaluate the a rterial structures. Source and MIP images are saved and reviewed on PACS. Advanced 3D imaging as volume-rendering, MIPs, SSD performed? yes All CT scanners at this facility use dose modulation, iterative reconstruction, and/or weight based d osing when appropriate to reduce radiation dose to as low as reasonably achievable (ALARA). [facility]: Dose Right [facility]: CareDose [facility]: Dose Right [facility]: Teradose 4D [facility]: [employer] CONTRAST TYPE AND DOSE: Not recorded not recorded RENAL FUNCTION: None required. The patient is less than 50 years old. LIMITATIONS: None. FINDINGS: BIG [place]E: The anterior, middle, posterior cerebral arteries are all patent. No ev idence of aneurysm or focal stenosis. POSTERIOR CIRCULATION: The distal vertebral arteries are patent as is the basilar artery. No aneurysm . BRAIN: No gross enhancing lesions as visualized. The superior cerebral hemispheres are not included in the field of view. BONES: Intact as visualized. SINUSES: No fluid or mucosal thickening. OTHER: No other significant finding. IMPRESSION: NO CTA EVIDENCE OF STENOSIS OR ANEURYSM OF THE BIG [place] OF COPE. No occlusion of the le ft MCA. TECHNICAL DOCUMENTATION: JOB ID: [id number] Quality ID # [id number]: Final reports with documentation of one or more dose reduction techniques (e.g., Au tomated exposure control, adjustment of the mA and/or kV according to patient size, use of iterative reconstruction technique) 2010 [employer]- All Rights Reserved Reading location - IP/workstation name: [email or web address]
[2018-03-22] MEDS ORDERED: ASPIRIN 325 MG TABLET PO ONE (12:16)
[2018-03-22 13:23] VITALS: BP 119/72
== END 2018-03-22 13:15 | disposition short-term general hospital (02) ==
LOC: ER 06:32
DX: I63.512 Cerebral infarction due to unspecified occlusion or stenosis of left middle cerebral artery (principal); R47.1 Dysarthria and anarthria; R29.810 Facial weakness; R20.2 Paresthesia of skin; R13.10 Dysphagia, unspecified; R29.702 NIHSS score 2
CPT/HCPCS: 93005; 99291; 96360; 36415; 83735; 84703; 85025; 85610; 85730; 80053; 81001; 80307; 70551; 70450; 70496; 70498; 93010; J7030

== ENCOUNTER → 2018-10-19 | Outpatient (CLI) | payer OTHER ==
[2018-10-19 15:59] LABS: HEMATOCRIT 31.9 % (36.0-47.0); HEMOGLOBIN 11.2 g/dL (12.0-15.5); MEAN CORPUSCULAR HEMOGLOBIN 32.9 pg (27.0-33.4); MEAN CORPUSCULAR VOLUME 94 fl (80-97); PLATELET COUNT 299 10^3/uL (150-450); WHITE BLOOD COUNT 7.9 10^3/uL (4.0-10.5)
[2018-10-19 16:18] LABS: ASPARTATE AMINO TRANSFERASE 15 U/L (14-36); URIC ACID 2.4 mg/dL (2.5-6.2)
== END ==
LOC: OD 14:48
PROVIDERS: ATTEND Obstetrics & Gynecology
DX: O16.9 Unspecified maternal hypertension, unspecified trimester (principal)
CPT/HCPCS: 36415; 82565; 83615; 84450; 84550; 85027

== ENCOUNTER → 2018-10-27 | Outpatient (CLI) | payer OTHER ==
[2018-10-27 12:06] LABS: HEMATOCRIT 30.8 % (36.0-47.0); HEMOGLOBIN 10.7 g/dL (12.0-15.5); MEAN CORPUSCULAR HEMOGLOBIN 32.4 pg (27.0-33.4); MEAN CORPUSCULAR HGB CONC 34.7 g/dL (32.0-36.0); MEAN CORPUSCULAR VOLUME 93 fl (80-97); PLATELET COUNT 293 10^3/uL (150-450); RED CELL DISTRIBUTION WIDTH 12.8 % (11.5-14.0); WHITE BLOOD COUNT 6.3 10^3/uL (4.0-10.5)
[2018-10-27 12:25] LABS: ASPARTATE AMINO TRANSFERASE 15 U/L (14-36); BLOOD UREA NITROGEN 3 mg/dL (7-20); CALCIUM 9.3 mg/dL (8.4-10.2); CARBON DIOXIDE 24 mmol/L (22-30); CHLORIDE 104 mmol/L (98-107); GLUCOSE 97 mg/dL (75-110); POTASSIUM 3.8 mmol/L (3.6-5.0); URIC ACID 2.7 mg/dL (2.5-6.2)
== END ==
LOC: OD 11:39
PROVIDERS: ATTEND Obstetrics & Gynecology
DX: O10.913 Unspecified pre-existing hypertension complicating pregnancy, third trimester (principal)
CPT/HCPCS: 36415; 82310; 82374; 82435; 82565; 82947; 84132; 84295; 84450; 84520; 84550; 85027